=== PATIENT | male | born 1945 | race Caucasian/White ===

== ENCOUNTER 2024-08-08 08:58 | Inpatient (IN) | payer OTHER, MEDICAID ==
[2024-08-08] VITALS (12 sets, daily range): BP systolic 117–164; BP diastolic 78–102; PULSE 57–62; RESP 11–20; TEMP 97.5–98.2; O2SAT 92–98
[~2024-08-08] VITALS: Ht 177.8 cm; Wt 83.5 kg
[2024-08-08] MEDS: IODIXANOL 320MG/ML 100ML BTL IV ONE ×2 (07:34→10:29)
[~2024-08-08 08:58] MED LIST: ALBU1AER4 IN; ALL100T PO; APIX5TAB PO; ATOR40TA52 PO; B-CO1CAP18 PO; BIOF500T4 PO; CARV6.2551 PO; CHOL20007 PO; COEN200C9 PO; CYAN1TAB11 PO; EMPA1TAB PO; FOLI-119 PO; GLUC1TAB22 PO; MENA100T PO; POM PO; SACU1TAB7 PO; TURM1CAP6 PO; ZINC50TA7 PO
[2024-08-08] MEDS: GLYCOPYRROLATE 0.2 MG/ML 1ML VIAL ONE (10:25)
[2024-08-08] MEDS: LIDOCAINE 2%HCL (LOCAL ANESTH.) INJ 20ML MDV ONE (10:25)
[2024-08-08] MEDS: ANGIOMAX 250 MG VIAL IV ONE (10:25)
[2024-08-08] MEDS: ATROPINE SULF 1 MG/10ml SYR ONE (10:25)
[2024-08-08] MEDS: SODIUM CHL 0.9% 50 ML ONE (10:25)
[2024-08-08] MEDS: EPINEPHrine HCL 1 MG/10 ML SYRG ONE (10:25)
[2024-08-08] MEDS: ASPirin 325 MG TAB ONE (11:51)
[2024-08-08] MEDS: CLOPIDOGREL BISULFATE 75 MG TAB ONE (11:52)
[2024-08-08] MEDS ORDERED: NITROGLYCERIN 0.4 MG SL TAB SL PRN (12:00)
[2024-08-08] MEDS ORDERED: MORPHINE SULFATE INJ 2 MG/ml SYRG IV PRN (12:00)
[2024-08-08] MEDS: APIXABAN 5 MG TAB PO ONE (13:50)
--- NOTE | 2024-08-08 15:21 | DVHOP ---
DATE OF SURGERY: 08/08/2024 PROCEDURE PERFORMED: Carotid angiography and stenting of the left internal carotid artery. INDICATION: History of CVA. Carotid stenosis. COMPLICATIONS: No complications. ANESTHESIA: Conscious sedation was not administered given the patient needed to remain responsive and alert throughout the procedure. Local anesthetic given to the right groin area. DESCRIPTION OF PROCEDURE: Prior local anesthesia with 2% lidocaine to the right groin and full informed consent obtained, the patient was prepped and draped in the usual fashion followed by placement of a 6-[place] into the right femoral artery, through which a JR4 diagnostic catheter was used to perform angiographic evaluation of bilateral carotid and left subclavian. The patient tolerated the procedure well. There were no complications. We then performed angioplasty as will be delineated below with stenting of the left internal carotid artery. HEMODYNAMICS: Aortic blood pressure was 130/70, end-diastolic pressure was not measured. Angiographic evaluation of the carotids revealed the common carotid on the right is normal. The right internal carotid artery has a 50-60% calcified plaque just distal to the bifurcation of the external carotid. There is no critical lesions at this level. The vertebral artery on the right is normal. The left common carotid artery is normal. The internal carotid artery proximal and distal to the external carotid artery shows a moderate plaquing and calcification. There is a 70-80% stenosis at the junction of the external carotid and just distal to that approximately 10 mm reveals a 90-95% stenosis of the internal carotid artery. The left subclavian is normal. Cerebral angiographic evaluation reveals patency of all arteries without significant abnormalities noted. We then exchanged the 6-[place] sheath for an 8-[place] sheath and used an 8-[place] multipurpose catheter. We then cannulated the left internal carotid artery and placed a filter wire. An Emboshield filter at the distal left internal carotid. We then took a 5 mm Medtronic balloon and I predilated subsequent to giving Robinul. We then removed the balloon and flushing the catheter consciously, we placed an Xact stent. This was a 9 x 7, 40 mm in length. We postdilated with a 5 mm balloon with excellent antegrade flow without thrombus formation. No dissection noted. We then removed the Emboshield successfully. The femoral artery was then closed with Angio-Seal device. The patient remained hemodynamically and neurologically stable throughout the procedure. No complications. The patient will be kept overnight for 24 hours. MD DAVID Cronin/SIRI TID: [id number] RECEIPT: [id number]
--- NOTE | 2024-08-08 15:42 | DVHHP2 ---
History of Present Illness Reason for Visit: Elective catheter angiogram with stent placement History of Present Illness 78-year-old male with a known history of congestive heart failure, coronary ar skylar disease, status post pacemaker placement who initially presented to the hospital as an electronic surgery for left carotid artery stenosis. Patient was recently diagnosed with carotid artery stenosis as an outpatient. Patient underwent left carotid angiogram with placement of stent in the left internal carotid artery. Patient currently denies any TIA or CVA type symptoms. Patient denies any chest pain shortness of breath. Cardiovascular: CAD, CHF, HTN Pulmonary: COPD Past Surgical History: Other (Pacemaker placement, left carotid artery stenosis status post left IC stent placement.) Family History: None Smoke: No ALCOHOL: none Review of Systems Review of Systems Twelve review of system and rectum cell mentioned above. Allergies: Uncoded Allergies: NONE (Allergy, Unknown, 08/07/24) Medications Current Medications Medications Dose Ordered Sig/Lyn Route Start Time Stop Time Status Last Admin Dose Admin Nitroglycerin 0.4 mg Q5MINP PRN SL 08/08/24 12:00 Morphine Sulfate 2 mg Q30M PRN IV 08/08/24 12:00 Aspirin 81 mg DAILY PO 08/09/24 10:00 Clopidogrel Bisulfate 75 mg DAILY PO 08/09/24 10:00 Exam Vital Signs Vital Signs Date Time Temp Pulse Resp B/P (MAP) Pulse Ox O2 Delivery O2 Flow Rate FiO2 08/08/24 14:05 97.5 60 18 164/88 (113) 95 97.5 08/08/24 14:04 Room Air* 0 21 Exam HEENT pupils are rectum Neck is supple CVS S1-S2 regular rate and rhythm Respiratory bilateral clear GI positive bowel sounds Extremity no 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 1. Left carotid Stenosis Status Post Left angiogram with left internal carotid stent placement 2. Status post pacemaker 3. Congestive heart failure coronary artery exacerbation unspecified 4. Hypertension -continue aspirin Plavix, we will follow cardiology recommendation Discharge plan Plan discussed with: Patient Date of Service: Aug 08, 2024 Billing Provider: JOSEF RODRÍGUEZ MD Common Visit Codes: NOT BILLABLE JOSEF RODRÍGUEZ MD Aug 08, 2024 15:42
[2024-08-09] VITALS (8 sets, daily range): BP systolic 125–132; BP diastolic 69–83; PULSE 60–74; RESP 17–19; TEMP 97.8–98.8; O2SAT 94–96
[2024-08-09] MEDS: ASPirin 81 mg TAB PO SCH (09:35)
[2024-08-09] MEDS: CLOPIDOGREL BISULFATE 75 MG TAB PO SCH (09:35)
[2024-08-09] MEDS ORDERED: CLOP75TA70 PO (15:58)
[2024-08-09] MEDS ORDERED: ASPI-325 PO (15:58)
--- NOTE | 2024-08-09 16:05 | DVHDS2 ---
Discharge Summary Date of Admission Aug 08, 2024 at 12:00 Date of Discharge: Aug 09, 2024 Brief Hx & Hospital Course: 78-year-old male with a known history of hypertension, congestive heart failure, status post pacemaker placement who was brought in by Cardiology for left carotid artery stent placement. Patient was underwent carotid angiogram on left side status post carotid artery stent placement. Patient was added on aspirin and Plavix. Cardiology agree with the patient was to be discharged. Patient was being discharged under stable condition with the home has home safety evaluation. Condition at Discharge: Stable Final Diagnosis/Problems List 78-year-old male with a known history of hypertension, congestive heart failure, status post pacemaker placement who was brought in by Cardiology for left carotid artery stent placement. 1. Left carotid Stenosis Status Post Left angiogram with left internal carotid stent placement 2. Status post pacemaker 3. Congestive heart failure coronary artery exacerbation unspecified 4. Hypertension Discharge Disposition: Home with Health Services [facility] Discharge Will this Physician continue t: No Discharge Instruct/Medications Diet: Cardiac 2g Na,low cholest Activity: No Restrictions, As Tolerated Follow Up/Referral: Follow up with the PCP and Cardiology in one week Medications: Resume home medications, add aspirin and Plavix, please stop aspirin after one month. Discharge Statement: "Patient was advised to return to the ER or call 911 if any headaches, dizziness, shortness of breath, chest pain, abdominal pain, bleeding, fevers, or worsening of medical condition. Patient was counseled about treatment plan, medications, possible side effects, patientverbalized understanding. All questions were answered to the best of my ability. This discharge took greater then 30 minutes in planning, reviewing documentation, counseling the patient, and discussing with other team members." ASSESSMENT ASSESSMENT Assessment 78-year-old male with a known history of hypertension, congestive heart failure, status post pacemaker placement who was brought in by Cardiology for left carotid artery stent placement. 1. Left carotid Stenosis Status Post Left angiogram with left internal carotid stent placement 2. Status post pacemaker 3. Congestive heart failure coronary artery exacerbation unspecified 4. Hypertension Date of Service: Aug 09, 2024 Billing Provider: JOSEF RODRÍGUEZ MD Common Visit Codes: NOT BILLABLE JOSEF RODRÍGUEZ MD Aug 09, 2024 16:05
== END 2024-08-09 17:40 | disposition home health service (06) | DRG 36 ==
LOC: CATH 08:58 → OVERFLOW 12:00 → TELE-EAST 14:08
PROVIDERS: ADMIT Internal Medicine; ATTEND Internal Medicine
PROC: 037L3DZ Dilation of Left Internal Carotid Artery with Intraluminal Device, Percutaneous Approach (ICD-10-PCS; principal; 2024-08-08)
PROC: B317YZZ Fluoroscopy of Left Internal Carotid Artery using Other Contrast (ICD-10-PCS; 2024-08-08)
DX: I65.22 Occlusion and stenosis of left carotid artery (principal); Z00.6 Encounter for examination for normal comparison and control in clinical research program; J44.9 Chronic obstructive pulmonary disease, unspecified; I50.9 Heart failure, unspecified; I11.0 Hypertensive heart disease with heart failure; I25.10 Atherosclerotic heart disease of native coronary artery without angina pectoris; Z95.0 Presence of cardiac pacemaker; Z79.82 Long term (current) use of aspirin; Z79.899 Other long term (current) drug therapy; Z86.73 Personal history of transient ischemic attack (TIA), and cerebral infarction without residual deficits
CPT/HCPCS: 36224; 75710; 99152; G0378; Q9967